=== PATIENT | female | born 1990 | race Caucasian/White ===

== ENCOUNTER 2022-06-13 21:46 | Inpatient (IN) | payer BC ==
[~2022-06-13] VITALS: Ht 172.7 cm; Wt 80.2 kg
[2022-06-13] MEDS ORDERED: DERMABOND TOPICAL SKIN ADHESIVE TOP ONE (22:35)
[2022-06-13 23:22] LABS: AMPHETAMINES LEVEL URINE NEGATIVE (NEGATIVE); BARBITURATES URINE NEGATIVE (NEGATIVE); BENZODIAZEPINES URINE NEGATIVE (NEGATIVE); CANNABINOIDS URINE NEGATIVE (NEGATIVE); COCAINE METABOLITE URINE NEGATIVE (NEGATIVE); METHADONE URINE NEGATIVE (NEGATIVE); OPIATES URINE NEGATIVE (NEGATIVE); PHENCYCLIDINE URINE NEGATIVE (NEGATIVE)
[2022-06-13 23:45] LABS: HEMATOCRIT 37.1 % (36.0-47.0); HEMOGLOBIN 12.6 g/dl (12.0-15.5); MEAN CORPUSCULAR VOLUME 91.4 fl (80.0-96.0); PLATELET COUNT, AUTOMATED 235 10^3/uL (150-450); RED BLOOD COUNT 4.06 10^6/uL (4.00-5.40); WHITE BLOOD COUNT 5.6 10^3/uL (4.0-10.0)
[2022-06-14 00:10] LABS: ETHYL ALCOHOL (ETHANOL) 0.219 % (0.000-0.010)
[2022-06-14 00:11] LABS: ACETAMINOPHEN LEVEL < 2.0 UG/ML (10.0-20.0)
[2022-06-14 00:12] LABS: ALBUMIN 4.2 G/DL (3.2-5.2); ALKALINE PHOSPHATASE 61 U/L (46-116); ALT/SGPT 12 U/L (7.0-40); AST/SGOT < 8 U/L (<34); BILIRUBIN,DIRECT 0.1 MG/DL (<0.4); BILIRUBIN,TOTAL 0.3 MG/DL (0.3-1.2); BLOOD UREA NITROGEN 10 MG/DL (9-23); CARBON DIOXIDE LEVEL 27 MMOL/L (20-31); CHLORIDE LEVEL 110 MMOL/L (98-107); GLOMERULAR FILTRATION RATE > 60.0 (>60); GLUCOSE, FASTING 110 MG/DL (60-100); POTASSIUM SERUM 3.7 MMOL/L (3.5-5.1); SALICYLATE LEVEL < 3.0 MG/DL (<30); SODIUM LEVEL 142 MMOL/L (136-145); TOTAL PROTEIN 7.3 G/DL (5.7-8.2)
[2022-06-14 00:13] LABS: THYROID STIMULATING HORMONE 1.454 uIU/ML (0.55-4.78)
[2022-06-14 00:24] LABS: HCG, SERUM QUALITATIVE NEGATIVE (NEGATIVE)
[2022-06-14 04:15] LABS: RSV AMPLIFICATION NEGATIVE (NEGATIVE)
[2022-06-14] MEDS ORDERED: LATU40TA2 PO (06:23)
[2022-06-14] MEDS ORDERED: ZOLO100T PO (06:23)
[2022-06-14] MEDS ORDERED: HOME MED LIST COMPLETE! XX SCH (06:25)
[2022-06-14] MEDS ORDERED: SERTRALINE 100 MG TAB PO SCH (09:00)
[2022-06-14] MEDS ORDERED: MOM 30ML SUSPENSION UDC PO PRN (14:10)
[2022-06-14] MEDS ORDERED: diphenhydrAMINE 25MG CAP PO PRN (14:10)
[2022-06-14] MEDS ORDERED: MAALOX 30 ML SUSP *UDC PO PRN (14:10)
[2022-06-14] MEDS ORDERED: LORazepam 2 MG TAB PO PRN (14:10)
[2022-06-14 16:28] VITALS: BP 106/59
[2022-06-14] MEDS: FOLIC ACID 1MG TAB PO SCH (17:55)
[2022-06-14] MEDS: MULTIVITAMINS/MINERALS THERAP 1 TAB PO SCH (17:55)
[2022-06-14] MEDS: THIAMINE 100 MG TAB PO SCH ×2 (17:57→20:25)
[2022-06-14] MEDS: NICOTINE 21MG/24HR 1 EA TRANSDERMAL TD SCH (18:09)
[2022-06-14] MEDS: LURASIDONE HCL 40MG TAB (LATUDA) PO SCH (20:25)
[2022-06-14] MEDS: traZODone 50 MG TAB PO PRN (20:25)
[2022-06-14] MEDS: IBUPROFEN 400MG TAB PO PRN (20:25)
[2022-06-15 06:00] VITALS: BP 93/55
[2022-06-15] MEDS: NICOTINE 21MG/24HR 1 EA TRANSDERMAL TD SCH (09:00)
[2022-06-15] MEDS ORDERED: hydrOXYzine 50 MG TAB PO PRN (09:15)
[2022-06-15] MEDS ORDERED: LORazepam 1 MG TAB PO ONE (09:25)
[2022-06-15] MEDS: GABAPENTIN 100 MG CAP PO SCH ×2 (10:02→21:04)
[2022-06-15] MEDS: FOLIC ACID 1MG TAB PO SCH (10:02)
[2022-06-15] MEDS: MULTIVITAMINS/MINERALS THERAP 1 TAB PO SCH (10:03)
[2022-06-15] MEDS: THIAMINE 100 MG TAB PO SCH ×2 (10:05→21:04)
[2022-06-15] MEDS: MUPIROCIN 2% OINT 22 GM TUBE TOP SCH ×2 (13:12→21:00)
[2022-06-15 14:30] VITALS: BP 109/63
[2022-06-15 18:56] VITALS: BP 109/63
[2022-06-15] MEDS: SERTRALINE 100 MG TAB PO SCH (21:04)
[2022-06-15] MEDS: LURASIDONE HCL 40MG TAB (LATUDA) PO SCH (21:04)
[2022-06-16 06:07] VITALS: BP 105/65
[2022-06-16 08:00] VITALS: BP 110/70
[2022-06-16] MEDS: MUPIROCIN 2% OINT 22 GM TUBE TOP SCH ×3 (09:00→20:34)
[2022-06-16] MEDS: NICOTINE 21MG/24HR 1 EA TRANSDERMAL TD SCH (09:00)
[2022-06-16] MEDS: GABAPENTIN 100 MG CAP PO SCH ×2 (09:39→20:32)
[2022-06-16] MEDS: FOLIC ACID 1MG TAB PO SCH (09:39)
[2022-06-16] MEDS: THIAMINE 100 MG TAB PO SCH ×2 (09:39→20:32)
[2022-06-16] MEDS: MULTIVITAMINS/MINERALS THERAP 1 TAB PO SCH (09:39)
[2022-06-16] MEDS: IBUPROFEN 400MG TAB PO PRN (10:34)
[2022-06-16 15:14] VITALS: BP 106/60
[2022-06-16 16:02] VITALS: BP 106/60
[2022-06-16] MEDS: traZODone 50 MG TAB PO PRN (20:32)
[2022-06-16] MEDS: SERTRALINE 100 MG TAB PO SCH (20:32)
[2022-06-16] MEDS: LURASIDONE HCL 40MG TAB (LATUDA) PO SCH (20:32)
[2022-06-17 06:35] VITALS: BP 115/63
[2022-06-17 06:41] VITALS: BP 115/63
[2022-06-17] MEDS: NICOTINE 21MG/24HR 1 EA TRANSDERMAL TD SCH (07:59)
[2022-06-17] MEDS: FOLIC ACID 1MG TAB PO SCH (08:01)
[2022-06-17] MEDS: GABAPENTIN 100 MG CAP PO SCH ×3 (08:01→20:22)
[2022-06-17] MEDS: MULTIVITAMINS/MINERALS THERAP 1 TAB PO SCH (08:01)
[2022-06-17 08:31] LABS: CHOLESTEROL RISK RATIO 3.85 (<5); HDL CHOLESTEROL 39.4 MG/DL (>40)
[2022-06-17 08:32] LABS: FREE T3 2.9 PG/ML (2.3-4.2); THYROXINE (T4) 4.3 UG/DL (4.5-10.9)
[2022-06-17] MEDS: MUPIROCIN 2% OINT 22 GM TUBE TOP SCH ×2 (08:53→20:23)
[2022-06-17 16:53] VITALS: BP 115/72
[2022-06-17] MEDS: IBUPROFEN 400MG TAB PO PRN (18:47)
[2022-06-17] MEDS: LURASIDONE HCL 40MG TAB (LATUDA) PO SCH (20:22)
[2022-06-17] MEDS: SERTRALINE 100 MG TAB PO SCH (20:22)
[2022-06-17] MEDS ORDERED: MIRTAZAPINE 7.5MG PER 1/2 TABLET PO SCH (21:00)
[2022-06-17 21:30] VITALS: BP 110/72
[2022-06-18 06:16] VITALS: BP 116/61
[2022-06-18 06:26] VITALS: BP 116/61
[2022-06-18] MEDS: NICOTINE 21MG/24HR 1 EA TRANSDERMAL TD SCH (08:46)
[2022-06-18] MEDS: FOLIC ACID 1MG TAB PO SCH (08:49)
[2022-06-18] MEDS: GABAPENTIN 100 MG CAP PO SCH ×3 (08:49→20:25)
[2022-06-18] MEDS: MULTIVITAMINS/MINERALS THERAP 1 TAB PO SCH (08:49)
[2022-06-18] MEDS: MUPIROCIN 2% OINT 22 GM TUBE TOP SCH ×2 (09:00→20:28)
[2022-06-18] MEDS: IBUPROFEN 400MG TAB PO PRN (11:14)
[2022-06-18] MEDS ORDERED: ACETAMINOPHEN TAB 650MG DOSE (2X325MG) PO PRN (11:35)
[2022-06-18 16:28] VITALS: BP 109/60
[2022-06-18] MEDS ORDERED: IBUPROFEN 400MG TAB PO PRN (17:00)
[2022-06-18] MEDS: SERTRALINE 100 MG TAB PO SCH (20:24)
[2022-06-18] MEDS: traZODone 50 MG TAB PO PRN (20:24)
[2022-06-18] MEDS: LURASIDONE HCL 40MG TAB (LATUDA) PO SCH (20:25)
[2022-06-18 20:49] VITALS: BP 109/72
[2022-06-18] MEDS ORDERED: MIRTAZAPINE 15 MG TAB PO SCH (21:00)
[2022-06-19 06:37] VITALS: BP 113/66
[2022-06-19] MEDS: FOLIC ACID 1MG TAB PO SCH (08:40)
[2022-06-19] MEDS: GABAPENTIN 100 MG CAP PO SCH (08:41)
[2022-06-19] MEDS: MULTIVITAMINS/MINERALS THERAP 1 TAB PO SCH (08:41)
[2022-06-19] MEDS: NICOTINE 21MG/24HR 1 EA TRANSDERMAL TD SCH (08:42)
[2022-06-19] MEDS: MUPIROCIN 2% OINT 22 GM TUBE TOP SCH (09:00)
[2022-06-19] MEDS ORDERED: MUPI2OI TOP (11:15)
[2022-06-19] MEDS ORDERED: LATU40TA2 PO (11:15)
[2022-06-19] MEDS ORDERED: SERT-141 PO (11:15)
[2022-06-19] MEDS ORDERED: GABA-1171 PO (11:15)
[2022-06-19] MEDS ORDERED: ZOLO100T PO (11:15)
[2022-06-19] MEDS ORDERED: MIRT-10 PO (11:15)
== END 2022-06-19 12:12 | disposition home or self-care (01) | DRG 753 ==
LOC: M ED 21:46 → M ED INP 06-14 14:10 → M PSY 06-14 16:16
PROVIDERS: ADMIT Psychiatry & Neurology Psychiatry; ATTEND Psychiatry & Neurology Psychiatry
DX: F31.81 Bipolar II disorder (principal); R45.851 Suicidal ideations; F41.1 Generalized anxiety disorder; F10.220 Alcohol dependence with intoxication, uncomplicated; F17.210 Nicotine dependence, cigarettes, uncomplicated; F60.3 Borderline personality disorder; F43.10 Post-traumatic stress disorder, unspecified; F90.9 Attention-deficit hyperactivity disorder, unspecified type; M54.50 Low back pain, unspecified; G89.29 Other chronic pain; G43.909 Migraine, unspecified, not intractable, without status migrainosus; S51.812A Laceration without foreign body of left forearm, initial encounter; X78.1XXA Intentional self-harm by knife, initial encounter; Y92.9 Unspecified place or not applicable; Z79.899 Other long term (current) drug therapy; Z20.822 Contact with and (suspected) exposure to COVID-19; Z91.51 Personal history of suicidal behavior

== ENCOUNTER → 2022-09-20 | Outpatient (REF) | payer BC ==
[~2022-09-20] MED LIST: GABA-1171 PO; LATU40TA2 PO; MIRT-10 PO; MUPI2OI TOP; SERT-141 PO; ZOLO100T PO
[2022-09-20 13:28] LABS: ALBUMIN 4.1 G/DL (3.2-5.2); ALKALINE PHOSPHATASE 63 U/L (46-116); ALT/SGPT 14 U/L (7.0-40); AST/SGOT 20 U/L (<34); BILIRUBIN,TOTAL 0.8 MG/DL (0.3-1.2); BLOOD UREA NITROGEN 14 MG/DL (9-23); CARBON DIOXIDE LEVEL 28 MMOL/L (20-31); CHLORIDE LEVEL 106 MMOL/L (98-107); CHOLESTEROL LEVEL 206 MG/DL (<200); CHOLESTEROL RISK RATIO 3.87 (<5); CREATININE FOR GFR 0.96 MG/DL (0.55-1.30); GLOMERULAR FILTRATION RATE > 60.0 (>60); GLUCOSE, FASTING 91 MG/DL (60-100); HDL CHOLESTEROL 53.2 MG/DL (>40); LDL CHOLESTEROL 136.6 MG/DL (<100); NON-HDL-C 152.8 MG/DL; SODIUM LEVEL 137 MMOL/L (136-145); TRIGLYCERIDES LEVEL 81 MG/DL (<150)
[2022-09-20 13:29] LABS: THYROID STIMULATING HORMONE 1.346 uIU/ML (0.55-4.78)
[2022-09-20 14:01] LABS: HIV 1&2 SCREEN NEGATIVE (NEGATIVE)
== END ==
LOC: M LAB REF 12:22
PROVIDERS: ATTEND Family Medicine Addiction Medicine
DX: E66.3 Overweight (principal); Z68.28 Body mass index [BMI] 28.0-28.9, adult